=== PATIENT | male | born 1945 | race Caucasian/White ===

== ENCOUNTER 2016-12-08 15:59 | Emergency (ER) | payer OTHER ==
[~2016-12-08] VITALS: Ht 182.9 cm; Wt 100.0 kg
[~2016-12-08 15:59] MED LIST: ASPI81TA82 PO; ATEN-100 PO; CIAL20TA PO; D31000TA PO; IMIP25TA PO; MELO15 PO; OMEP40CA2 PO; PRAM0.5T PO; SUPETAB PO; TAMS0.4C4 PO; TERA5CAP3 PO
[2016-12-08 16:00] VITALS: BP 114/78; PULSE 101; RESP 15; TEMP 98.2; O2SAT 98
--- NOTE | 2016-12-08 16:21 | PD ---
Physical Exam Date Seen by Provider: Dec 08, 2016 Time Seen by Provider: 16:18 Narrative 71-year-old male presents to the emergency Department with rash to the right posterior neck pain, tingling, and right ear and facial pain. Patient states his symptoms started 2 days ago. Patient denies fever. Patient states blisters on the back of his right neck and gout. Patient describes his pain as burning. Maybe a 2 out of 10. He denies any other symptoms. He denies eye pain. No known drug allergies. Vital signs stable. Patient awaiting bed placement. Data Data Last Documented VS Vital Signs Date Time Temp Pulse Resp B/P (MAP) Pulse Ox O2 Delivery O2 Flow Rate FiO2 12/08/16 16:00 98.2 101 15 114/78 90 98 MDM Medical Record Reviewed: Yes Supervised Visit with CORINA: Yes Condition: Stable Elia Miner Dec 08, 2016 16:21
--- NOTE | 2016-12-08 16:38 | PD ---
HPI Chief Complaint: Skin Problem Time Seen by Provider: 16:34 Travel History International Travel<30 days: No Contact w/Intl Traveler<30days: No Traveled to known affect area: No History of Present Illness HPI Patient comes in complaining of a burning painful rash that began 2 days ago on his right posterior neck is since moved into his occipital lobe on the right, right ear, and right trapezius muscle going towards his shoulder. Pain radiates over his scalp. Patient denies anything like this in the past. Patient denies anything making it better. States progressively getting worse. Patient denies any known fevers, nausea, vomiting, chest pain, neck pain, shortness of breath, or being around anyone else with similar. PFSH Past Medical History GERD: Yes Hypertension: Yes Immunizations Current: No Renal Failure: Yes (hx of renal insuff) Past Surgical History Other Surgery: Yes ("cage on spine", knee arthoplasty) Social History Alcohol Use: Yes (on occasion) Tobacco Use: No Substance Use: No Allergies-Medications (Allergen,Severity, Reaction): Coded Allergies: No Known Allergies (Unverified , 12/08/16) Reported Meds & Prescriptions Reported Meds & Active Scripts Active Valacyclovir (Valacyclovir HCl) 1,000 Mg Tab 1,000 Mg PO TID 7 Days Review of Systems Except as stated in HPI: all other systems reviewed are Neg Physical Exam Narrative GENERAL: Well-developed, overly nourished, in no acute distress, and non-ill appearing. SKIN: Vesicular lesions noted over dermatomes T2, C3, and C4 on the right. Does not cross midline. There is no drainage, erythematous, or crepitus. Rash is consistent with shingles. HEAD: Atraumatic. Normocephalic. EYES: Pupils equal and round. EOMI. No scleral icterus. No injection or drainage. ENT: No nasal bleeding or discharge. Mucous membranes pink and moist. NECK: Trachea midline. Supple. No nuclear rigidity. RESPIRATORY: No accessory muscle use. No respiratory distress. MUSCULOSKELETAL: No obvious deformities. No clubbing. No cyanosis. No edema. Full range of motion. NEUROLOGICAL: Awake and alert. No obvious cranial nerve deficits. Motor grossly within normal limits. Normal speech. PSYCHIATRIC: Appropriate mood and affect; insight and judgment normal. Data Data Last Documented VS Vital Signs Date Time Temp Pulse Resp B/P (MAP) Pulse Ox O2 Delivery O2 Flow Rate FiO2 12/08/16 16:40 12/08/16 16:00 98.2 101 15 98 MDM Medical Decision Making Medical Screen Exam Complete: Yes Emergency Medical Condition: Yes Differential Diagnosis Shingles, folliculitis, cellulitis, gangrene, abscess, other Narrative Course Patient in no obvious distress upon re-evaluation. Patient was asked if they wanted to speak to my attending, which the patient did not wish to do at this time. Any questions/concerns in reference to patient diagnosis/condition discussed and clarified prior to patient's discharge. Reinforced sheer importance of close follow up with patient's primary physician or primary care clinic. Instructed patient to return to ED immediately, if symptoms return/ worsen. Pt showed understanding of above instructions. Further instructions and recommendations were detailed in discharge paperwork. Pt ambulated without difficulty out of ED at discharge. Diagnosis Primary Impression: Shingles Qualified Codes: B02.9 - Zoster without complications Referrals: [facility] Patient Instructions: General Instructions, Shingles (ED) Additional Instructions: Follow-up with your primary care physician next week for reevaluation. Take all medication as prescribed. Use [id number] Tylenol and/or calamine lotion for pain control. Follow instructions on the packaging. Return to the emergency department if symptoms get worse. Med/Other Pt SpecificInfo: Prescription(s) given Scripts Valacyclovir (Valacyclovir) 1,000 Mg Tab 1000 MG PO TID for Mgmt Viral Infection for 7 Days, TAB 0 Refills Prov: Mohit Hendricks MD 12/08/16 Disposition: 01 DISCHARGE HOME Condition: Stable Cristopher Myles Dec 08, 2016 16:38
[2016-12-08] MEDS ORDERED: VALA1TAB PO (16:39)
== END 2016-12-08 16:59 | disposition home or self-care (01) ==
LOC: NEPK 15:59
DX: B02.9 Zoster without complications (principal); I10 Essential (primary) hypertension; K21.9 Gastro-esophageal reflux disease without esophagitis
CPT/HCPCS: 99283